=== PATIENT | male | born 1955 | race Caucasian/White ===

== ENCOUNTER → 2017-06-27 | Outpatient (CLI) | payer OTHER ==
[~2017-06-27] MED LIST: NO HOME MEDICATIONS; PERCOCET 325 MG1 TA2 PO
== END ==
LOC: COL.RAD 10:34
DX: Z02.71 Encounter for disability determination (principal); M25.561 Pain in right knee; Z98.890 Other specified postprocedural states; Z87.81 Personal history of (healed) traumatic fracture; M25.572 Pain in left ankle and joints of left foot